=== PATIENT | male | born 1990 | race Caucasian/White ===

== ENCOUNTER 2018-04-14 18:11 | Emergency (ER) | payer SELFPAY ==
[~2018-04-14] VITALS: Ht 167.6 cm; Wt 73.9 kg
[2018-04-14 18:18] VITALS: BP 110/66
--- NOTE | 2018-04-14 18:35 | NUR ---
PT AMBULATED TO ER BED 1.
--- NOTE | 2018-04-14 18:44 | NUR ---
27/M PRESENT TO ER C/O TOOTHACHE x 10 DAYS. PT STATES HE CHIPPED HIS TOOTH AND CANNOT GET AN APPOINTMENT WITH HIS DENTIST. AAOx4, PERRLA. PAIN 7/ , PT HAS TAKEN ASPIRIN 325MG BUT HAS NOT ALLEVIATED THE PAIN. ERMD AWARE OF PATIENT STATUS.
[2018-04-14 19:35] VITALS: BP 110/66
--- NOTE | 2018-04-14 19:35 | NUR ---
Patient discharged with v/s stable. Written and verbal after care instructions given and explained. Patient alert, oriented and verbalized understanding of instructions. Ambulatory with steady gait. All questions addressed prior to discharge. ID band removed. Patient advised to follow up with PMD. Rx of AMOXICILLIN AND IBUPROFEN given. Patient educated on indication of medication including possible reaction and side effects. Opportunity to ask questions provided and answered.
== END 2018-04-14 19:35 | disposition home or self-care (01) ==
LOC: MED 18:11
DX: S02.5XXA Fracture of tooth (traumatic), initial encounter for closed fracture (principal); X58.XXXA Exposure to other specified factors, initial encounter; Y93.89 Activity, other specified; Y92.89 Other specified places as the place of occurrence of the external cause; Y99.8 Other external cause status
CPT/HCPCS: 99283